=== PATIENT | female | born 1995 | race Caucasian/White ===

== ENCOUNTER → 2017-06-08 | Outpatient (CLI) | payer OTHER ==
--- NOTE | 2017-06-08 08:09 | DIAGNOSTIC IMAGING REPORT ---
MAXILLOFACIAL CT WITHOUT CONTRAST CLINICAL HISTORY: Cystic lesion of the mandible. COMPARISON STUDY: None. TECHNIQUE: A maxillofacial CT was performed without IV contrast. Coronal and sagittal reformats were viewed. A dose lowering technique was utilized adhering to the principles of ALARA. FINDINGS: Visualized portions of the intracranial contents are unremarkable. Mastoid air cells are free. There is minimal mucosal thickening of the sinuses. There are no air-fluid levels. Major drainage pathways of the sinuses are clear. Note is made of an expansile lytic lesion associated with an unerupted right third mandibular molar. This lesion measures 4 x 2.6 x 1.1 cm and results in bony expansion and cortical thinning. The lesion involves the right mandibular angle and ramus. No associated fracture is noted. No soft tissue extension is noted. There is minimal lucency surrounding the left third mandibular molar. No additional lesions are identified. The parotid and submandibular glands are unremarkable. Orbits are unremarkable. IMPRESSION: 4 x 2.6 x 1.1 cm expansile lytic lesion associated with an unerupted right third mandibular. The lesion results in bony expansion with cortical thinning and involves the angle and ramus of the right hemimandible. Although nonspecific, this lesion does not have aggressive imaging characteristics and the appearance favors a dentigerous cyst. An odontogenic keratocyst could appear similar although is considered less likely. Electronically signed by: Abel Lopez M.D. 06/08/2017 8:07 AM Dictated Date/Time: 06/08/2017 7:49 AM
== END | disposition home or self-care (01) ==
LOC: C.CTS 07:36
PROVIDERS: ATTEND Oral & Maxillofacial Surgery
DX: M27.40 Unspecified cyst of jaw (principal); K00.6 Disturbances in tooth eruption